=== PATIENT | male | born 1990 | race Caucasian/White ===

== ENCOUNTER 2018-09-19 21:38 | Inpatient (IN) | payer OTHER ==
[~2018-09-19] VITALS: Ht 180.3 cm; Wt 74.8 kg
--- NOTE | 2018-09-19 22:10 | NUR ---
CONSENT FOR PROCEDURE SIGNED BY PT.
[2018-09-19 22:18] LABS: APPEARANCE CLEAR (CLEAR); BILIRUBIN NEGATIVE (NEGATIVE); COLOR STRAW (YELLOW); GLUCOSE NEGATIVE (NEGATIVE); KETONE NEGATIVE (NEGATIVE); NITRITE NEGATIVE (NEGATIVE); PROTEIN NEGATIVE (NEGATIVE); SPECIFIC GRAVITY 1.005 (1.005-1.020); UROBILINOGEN NORMAL (NORMAL)
[2018-09-19 22:20] LABS: UDS - AMPHET NEGATIVE QUAL (NEGATIVE); UDS - BARB NEGATIVE QUAL (NEGATIVE); UDS - BENZO NEGATIVE QUAL (NEGATIVE); UDS - COCAINE NEGATIVE QUAL (NEGATIVE); UDS - OPIATE NEGATIVE QUAL (NEGATIVE); UDS - PCP NEGATIVE QUAL (NEGATIVE); UDS - THC NEGATIVE QUAL (NEGATIVE)
[2018-09-19 22:30] VITALS: BP 133/76
[2018-09-19 22:31] LABS: BASOPHILS 0.1 % (0-2); EOSINOPHILS 0.1 % (0-7); HEMATOCRIT 44.7 % (42.0-54.0); HEMOGLOBIN 16.4 g/dL (13.5-17.5); IMMATURE GRANULOCYTES 0.2 % (0-5); LYMPHOCYTES 3.6 % (15-50); MCH 31.4 pg (26.0-34.0); MCHC 36.7 g/dL (31.0-37.0); MCV 85.5 fL (80.0-100.0); MEAN PLATELET VOLUME 10.2 fL (7.4-10.4); MONOCYTES 7.8 % (2-11); NEUTROPHILS 88.2 % (40-80); PLATELET COUNT 176 10x3/uL (130-400); RBC 5.23 10x6/uL (4.20-6.10); RDW 12.8 % (11.5-14.5); WBC 13.3 10x3/uL (4.8-10.8)
--- NOTE | 2018-09-19 22:35 | NUR ---
DR. EDOUARD AT PT'S BEDSIDE TO DO LUMBAR PUNCTURE, PT TOLERATED WELL. CSF TAKEN TO LAB.
[2018-09-19 22:47] LABS: ALBUMIN 4.6 g/dL (3.4-5.0); ANION GAP 12.4 mmol/L (8-16); BILIRUBIN - TOTAL 1.42 mg/dL (0.2-1.3); CALCIUM 9.1 mg/dL (8.5-10.1); CARBON DIOXIDE 27.6 mmol/L (21.0-32.0); CREATININE - SERUM 1.5 mg/dL (0.6-1.3); PROTEIN - SERUM 8.1 g/dL (6.4-8.2)
[2018-09-20 00:13] LABS: APPEARANCE - CSF CLEAR
[2018-09-20 00:14] LABS: RBC - CSF 0 cmm (0-0)
[2018-09-20 00:29] LABS: GLUCOSE - CSF 63 MG/DL (40-75); PROTEIN - CSF 57 MG/DL (12-60)
[2018-09-20] MEDS ORDERED: OMEPRAZOLE20 M1 PO (01:00)
[2018-09-20 01:01] VITALS: BP 115/63; Ht 180.3 cm; Wt 74.8 kg
[2018-09-20 01:02] VITALS: BP 115/63
--- NOTE | 2018-09-20 01:54 | NUR ---
ASSESSED AT THE TIME OF ARRIVAL. PT WAS SEEN BY JIM DIOP AND ORDERS WERE ADDRESSED. TYLENOL WAS GIVEN FOR HEADACHE. HE IS ALERT AND ORIENTED, ABLE TO VERBALIZE NEEDS AND GET UP TO THE BATHROOM AD ALISA. TELEMETRY WAS ORDERED AND PT IS NOW ON THE WAIT LIST FOR AVAIBLE MONITORS. WILL CONTINUE TO MONITOR.
[2018-09-20 05:10] LABS: BASOPHILS 0.1 % (0-2); EOSINOPHILS 0.1 % (0-7); HEMATOCRIT 38.8 % (42.0-54.0); HEMOGLOBIN 13.8 g/dL (13.5-17.5); IMMATURE GRANULOCYTES 0.2 % (0-5); LYMPHOCYTES 13.3 % (15-50); MCH 30.6 pg (26.0-34.0); MCHC 35.6 g/dL (31.0-37.0); MEAN PLATELET VOLUME 9.9 fL (7.4-10.4); MONOCYTES 10.4 % (2-11); NEUTROPHILS 75.9 % (40-80); PLATELET COUNT 146 10x3/uL (130-400); RBC 4.51 10x6/uL (4.20-6.10); RDW 12.9 % (11.5-14.5); WBC 10.9 10x3/uL (4.8-10.8)
[2018-09-20 05:35] LABS: ANION GAP 11.3 mmol/L (8-16); C-REACTIVE PROTEIN 9.6 mg/dL (0.0-0.9); CALCIUM 8.2 mg/dL (8.5-10.1); CARBON DIOXIDE 27.6 mmol/L (21.0-32.0); CREATININE - SERUM 1.4 mg/dL (0.6-1.3); MAGNESIUM - SERUM 1.9 mg/dL (1.8-2.4); POTASSIUM - SERUM 3.9 mmol/L (3.5-5.1)
[2018-09-20 06:16] LABS: ERYTHROCYTE SEDIMENTATION RATE 2 mm/hr (0-15)
--- NOTE | 2018-09-20 07:40 | NUR ---
PT RESTING QUIETLY IN BED. NO ACUTE DISTRESS NOTED. REMAINS AFEBRILE AT THIS TIME. IV TO RIGHT AC WITH NS @ 125ML/HR INFUSING VIA PUMP. SITE WITHOUT REDNESS OR EDEMA. DENIES PAIN AT THIS TIME. DENIES FURTHER NEEDS AT THIS TIME. CL WITHIN REACH. ENCOURAGED TO CALL WITH NEEDS. CONTINUE POC
[2018-09-20 08:15] VITALS: BP 112/68
[2018-09-20 13:13] VITALS: BP 107/55
[2018-09-20 16:21] VITALS: BP 124/80
--- NOTE | 2018-09-20 20:00 | NUR ---
LAYING IN BED A/O X4. NO SIGNS OF DISTRESS NOTED. DENIES PAIN OR OTHER NEEDS AT THIS TIME. CONTINUE WITH PLAN OF CARE.
[2018-09-20 21:25] VITALS: BP 125/79
[2018-09-21 01:24] VITALS: BP 126/82
[2018-09-21 05:44] VITALS: BP 121/77
[2018-09-21 06:39] LABS: BASOPHILS 0.2 % (0-2); EOSINOPHILS 2.4 % (0-7); HEMATOCRIT 37.7 % (42.0-54.0); HEMOGLOBIN 13.3 g/dL (13.5-17.5); IMMATURE GRANULOCYTES 0.2 % (0-5); LYMPHOCYTES 44.8 % (15-50); MCH 30.6 pg (26.0-34.0); MCHC 35.3 g/dL (31.0-37.0); MCV 86.7 fL (80.0-100.0); MEAN PLATELET VOLUME 10.3 fL (7.4-10.4); MONOCYTES 9.8 % (2-11); NEUTROPHILS 42.6 % (40-80); PLATELET COUNT 149 10x3/uL (130-400); RBC 4.35 10x6/uL (4.20-6.10)
[2018-09-21 06:42] LABS: WBC 6.1 10x3/uL (4.8-10.8)
[2018-09-21 07:05] LABS: CALC OSMOLALITY 283 mosm/kg (275-300); CALCIUM 8.4 mg/dL (8.5-10.1); CARBON DIOXIDE 28.6 mmol/L (21.0-32.0); CHLORIDE - SERUM 107 mmol/L (98-107); CREATININE - SERUM 1.2 mg/dL (0.6-1.3); GLUCOSE 92 mg/dL (74-106); MAGNESIUM - SERUM 1.8 mg/dL (1.8-2.4); PHOSPHOROUS 3.9 mg/dL (2.5-4.9); POTASSIUM - SERUM 4.1 mmol/L (3.5-5.1); SODIUM 142 mmol/L (136-145); UREA NITROGEN 14 mg/dL (7-18); eGFR NON AFRICAN AMERICAN 78 mL/min (90-120)
--- NOTE | 2018-09-21 07:43 | NUR ---
AWAKE AND ALERT. ORIENTED X3. NO C/O AT THIS TIME. NO TEMP THIS AM. LUNGS ARE CLEAR BILATERALLY, NO COUGH NOTED. SKIN IS INTACT WITHOUT REDNESS. IV TO RIGHT AC IS PATENT WITHOUT REDNESS AT INSERTION SITE. DENIES NEEDS.
[2018-09-21 09:04] VITALS: BP 124/87
[2018-09-21] MEDS ORDERED: AUGMENTIN 875-11 TAB PO (10:07)
--- NOTE | 2018-09-21 10:29 | NUR ---
IV TO RIGHT AC IS LEAKING. WILL D/C. UP TO SHOWER WITH SET UP ASSISTANCE.
--- NOTE | 2018-09-21 12:00 | NUR ---
DISCHARGED TO HOME AMBULATORY WITH . DISCHARGE INSTRUCTIONS GIVEN BOTH VERBALLY AND WRITTEN. ALL QUESTIONS ANSWERED. PATIENT VERBALIZED UNDERSTANDING OF SAME. IV TO RIGHT AC D/C WITH CATHETER INTACT. ALL BELONGINGS WITH PATIENT. NEEDED PRESCRIPITONS ESCRIBED TO PHARMACY OF CHOICE.
[2018-09-23 12:09] LABS: CRYPTO AG - CSF Negative (Negative)
[2018-09-24 11:10] LABS: CHLAMYDIA TRACHOMATIS, NAA Negative (Negative)
== END 2018-09-21 12:00 | disposition home or self-care (01) | DRG 872 ==
LOC: D.ER 21:38 → D.MS 09-20 00:21
PROVIDERS: Family Medicine; ADMIT Internal Medicine Nephrology; ATTEND Internal Medicine Nephrology
PROC: 009U3ZZ Drainage of Spinal Canal, Percutaneous Approach (ICD-10-PCS; principal; 2018-09-20)
DX: A41.9 Sepsis, unspecified organism (principal); A28.9 Zoonotic bacterial disease, unspecified; N17.9 Acute kidney failure, unspecified; E78.5 Hyperlipidemia, unspecified